=== PATIENT | male | born 1970 | race Caucasian/White ===

== ENCOUNTER 2019-02-13 15:22 | Inpatient (IN) | payer MEDICAID ==
[~2019-02-13] VITALS: Ht 180.3 cm; Wt 70.5 kg
--- NOTE | 2019-02-13 15:40 | NUR ---
pt rec'd to er via ems was yelling infront of [phone] . pt has dui offficers came to see pt case # [id number] officers #[id number] Xin Edwards # [id number]
[2019-02-13] MEDS ORDERED: IV NS 0.9% 1,000 ML BAG IV ONE (16:00)
[2019-02-13 16:04] LABS: BASOPHILS # (AUTO) 0.1 /CMM (0.0-0.2); BASOPHILS % (AUTO) 0.8 % (0.0-2.0); EOSINOPHILS % (AUTO) 0.6 % (0.0-6.0); HEMATOCRIT 44 % (39-51); LYMPHOCYTES # (AUTO) 2.9 /CMM (0.8-4.8); LYMPHOCYTES % (AUTO) 34.8 % (20.0-44.0); MEAN CORPUSCULAR HGB CONC 34 g/dl (31.0-36.0); MEAN CORPUSCULAR VOLUME 92 fL (80-96); MONOCYTES # (AUTO) 0.4 /CMM (0.1-1.30); MONOCYTES % (AUTO) 4.3 % (2.0-12.0); NEUTROPHILS % (AUTO) 59.5 % (43.0-81.0); PLATELET COUNT (AUTO) 379 /CMM (150-450); RED BLOOD CELL COUNT(AUTO) 4.75 MIL/uL (4.5-6.0); WHITE BLOOD COUNT (AUTO) 8.3 K/uL (4.3-11.0)
[2019-02-13 16:12] LABS: CALCIUM, SERUM 8.2 mg/dL (8.5-10.1); CARBON DIOXIDE 23 mmol/L (21-32); CHLORIDE 97 mmol/L (98-107); GLUCOSE 286 mg/dL (74-106); POTASSIUM 3.6 mmol/L (3.5-5.1); SODIUM SERUM 135 mmol/L (136-145); UREA NITROGEN, BLOOD 8 mg/dL (7-18)
[2019-02-13 16:26] LABS: ACETAMINOPHEN < 2 ug/ml (10-30); ALANINE AMINOTRANSFERASE 251 U/L (12-78); ALBUMIN 3.6 g/dL (3.4-5.0); ALCOHOL, BLOOD 276 mg/dL (0-0); ALKALINE PHOSPHATASE 115 U/L (46-116); ASPARTATE AMINOTRANSFERASE 347 U/L (15-37); BILIRUBIN,DIRECT 0.2 mg/dL (0.0-0.2); BILIRUBIN,TOTAL 0.5 mg/dL (0.2-1.0); SALICYLATE < 2.8 mg/dL (2.8-20.0); TOTAL PROTEIN, SERUM 8.2 g/dL (6.4-8.2)
[2019-02-13 16:45] LABS: APPEARANCE,URINE Clear (CLEAR); BILIRUBIN,URINE Negative (NEGATIVE); BLOOD, URINE Negative Ery/uL (NEGATIVE); COLOR,URINE Yellow (YELLOW); KETONES,URINE Negative (NEGATIVE); LEUKOCYTE ESTERASE ,URINE Negative (NEGATIVE); NITRITE, URINE Negative (NEGATIVE); PROTEIN,URINE Negative (NEGATIVE); UGLUCOSE 100 MG/DL mg/dL (NEGATIVE); UROBILINOGEN,URINE 0.2 EU/dL (0.2)
--- NOTE | 2019-02-13 18:19 | NUR ---
dr bimal kang admiting etoh withdrawal
--- NOTE | 2019-02-13 18:25 | NUR ---
CALLED NURSING SUP FOR MEDSURG BED
--- NOTE | 2019-02-13 19:25 | NUR ---
[facility] [facility]
--- NOTE | 2019-02-13 19:42 | NUR ---
GAVE REPORT TO GELA AGUILERA FOR PAZ
--- NOTE | 2019-02-13 20:41 | NUR ---
PT TRANSFERRED TO AR BED
[2019-02-13 20:45] VITALS: BP 144/73
[2019-02-13] MEDS: IV NS 0.9% 1,000 ML IV PRN (20:47)
[2019-02-13] MEDS ORDERED: THIAMINE HCL 100 MG TABLET PO ONE (21:00)
[2019-02-13] MEDS ORDERED: Z GUARD REMEDY 2 OZ OINT TP PRN ×2 (21:00→21:30)
[2019-02-13] MEDS ORDERED: ACETAMINOPHEN 325 MG TABLET PO PRN (21:00)
[2019-02-13] MEDS ORDERED: ONDANSETRON HCL/PF 4 MG/2 ML VIAL IVP PRN (21:00)
[2019-02-14] MEDS: LORAZEPAM INJ 2 MG/ML VIAL IV PRN ×2 (03:10→20:42)
[2019-02-14 04:00] VITALS: BP 149/92
[2019-02-14 06:54] LABS: BASOPHILS # (AUTO) 0.1 /CMM (0.0-0.2); BASOPHILS % (AUTO) 0.9 % (0.0-2.0); EOSINOPHILS % (AUTO) 2.2 % (0.0-6.0); HEMATOCRIT 43 % (39-51); HEMOGLOBIN 14.7 g/dL (13.5-17.5); LYMPHOCYTES # (AUTO) 2.3 /CMM (0.8-4.8); MEAN CORPUSCULAR HGB CONC 34 g/dl (31.0-36.0); MEAN CORPUSCULAR VOLUME 92 fL (80-96); MONOCYTES # (AUTO) 0.7 /CMM (0.1-1.30); MONOCYTES % (AUTO) 9.7 % (2.0-12.0); NEUTROPHILS # (AUTO) 3.8 /CMM (1.8-8.9); NEUTROPHILS % (AUTO) 54.2 % (43.0-81.0); PLATELET COUNT (AUTO) 294 /CMM (150-450); RED BLOOD CELL COUNT(AUTO) 4.67 MIL/uL (4.5-6.0)
--- NOTE | 2019-02-14 07:15 | NUR ---
MS RN NOTES PATIENT IN BED SLEEPING COMFORTABLY, ABUSABLE WHEN NAME CALLED/OX4. LAC #18 IS PATENT RUNNING WITH NS 75ML/HR. BED LOCKED AT THE LOWEST POSITION CALL LIGHT WITHIN REACH.
[2019-02-14 07:21] LABS: ALBUMIN 3.1 g/dL (3.4-5.0); BILIRUBIN,TOTAL 1.1 mg/dL (0.2-1.0); CALCIUM, SERUM 7.9 mg/dL (8.5-10.1); CREATININE 0.8 mg/dL (0.6-1.3); MAGNESIUM 1.8 mg/dL (1.8-2.4); PHOSPHORUS 2.8 mg/dL (2.5-4.9); POTASSIUM 3.9 mmol/L (3.5-5.1); TOTAL PROTEIN, SERUM 7.6 g/dL (6.4-8.2)
[2019-02-14 08:00] VITALS: BP 147/77
[2019-02-14] MEDS: FOLIC ACID 1 MG TABLET PO SCH (08:10)
[2019-02-14] MEDS: PANTOPRAZOLE 40 MG TABLET.DR PO SCH (08:10)
[2019-02-14] MEDS: THIAMINE HCL 100 MG TABLET PO SCH (08:10)
[2019-02-14] MEDS: MULTIVITAMINS,THERAGRAN 1 UDTAB TABLET PO SCH (08:11)
[2019-02-14 12:00] VITALS: BP 147/77
[2019-02-14] MEDS: IV NS 0.9% 1,000 ML IV PRN (12:55)
[2019-02-14 16:00] VITALS: BP 139/90
[2019-02-14 20:00] VITALS: BP 136/82
--- NOTE | 2019-02-14 20:06 | NUR ---
MS RN NOTES PATIENT IS A/O X4 SITTING IN BED COMFORTABLY. HE WAS ABLE TO TAKE SHOWER. LEFT ARM IV IS PATENT AND 75 ML/H NS IS RUNNING. NO PAIN AND DISCOMFORT NOTED. PT REQUESTED SLEEP MEDICATION, INFORMED COMBAT SYSTEMS OPERATOR NURSE. BED AT LOWEST POSITION LOCKED, CALL LIGHT WITHIN REACH. ENDORSED TO COMBAT SYSTEMS OPERATOR NURSE FOR PAZ.
--- NOTE | 2019-02-14 20:49 | NUR ---
recieved from another rrn for dylan nued care,
--- NOTE | 2019-02-14 21:04 | NUR ---
physician projection welding machine operator paged as the patient last drink of alcohol was yesterday and is anxious. lorazepam dose given for anxiety. requesting for mjedication for sleep.
--- NOTE | 2019-02-14 21:10 | NUR ---
DR MURDOCK CALLED BACK AND WITH ORDERS MADE AND CARRIED OUT
--- NOTE | 2019-02-14 21:13 | NUR ---
ASLEEP WITH THE SAME IVF ON
[2019-02-14] MEDS ORDERED: ZOLPIDEM TARTRATE 5 MG TABLET PO PRN (21:30)
[2019-02-15] MEDS: IV NS 0.9% 1,000 ML IV PRN (03:07)
[2019-02-15 04:00] VITALS: BP 142/75
--- NOTE | 2019-02-15 07:43 | NUR ---
MS RN NOTES PATIENT IS A/OX4 AWAKE SITTING IN THE BED ON ROOM AIR. NO SOB OR DISCOMFORT NOTED AT THIS TIME.LEFT ARM IV #18 PATENT @NS75ML/H. CALL LIGHT WITHIN CLOSE REACH BED LOCKED AT THE LOWEST POSITION.
[2019-02-15 08:00] VITALS: BP 147/94
[2019-02-15] MEDS: PANTOPRAZOLE 40 MG TABLET.DR PO SCH (08:29)
[2019-02-15] MEDS: MULTIVITAMINS,THERAGRAN 1 UDTAB TABLET PO SCH (08:29)
[2019-02-15] MEDS: THIAMINE HCL 100 MG TABLET PO SCH (08:29)
[2019-02-15] MEDS: FOLIC ACID 1 MG TABLET PO SCH (08:29)
--- NOTE | 2019-02-15 08:37 | NUR ---
MS RN NOTES PATIENT COMPLAINED OF THROBBING HEADACHE OF 3/10. TYLENOL ADMINISTRATED.
--- NOTE | 2019-02-15 11:29 | NUR ---
Social service consult requested by Dr. Nj for homelessness. Pt. is a 48 year old male who was admitted to [facility] for alcohol withdrawal. SW met with the pt. bedside. Pt. is alert and oriented x 4. Pt. was sitting upright on the edge of the bed. Pt. is cooperative and pleasant with SW during the assessment. Pt. states he is homeless and lives in his car. Pt. has been homeless for a month. Prior to being homeless, pt. was residing with his brother but they didn't get along. Pt. applied for GR and food stamps and stated he is going to go to the [facility] located at [address] [place] [address] in [place] once he is discharged from [facility]. SW offered pt. [place], however pt. declined. Pt. states, he doesn't want to go to [facility] since that's where he use to alliance party and use drugs. Pt. is willing to accept homeless resources. Pt. is an alcoholic and drinks 5 to 6 beers per day. 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 Pt. has a history of alcohol treatment programs. He attended [facility] approximately 20 years ago. 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 Pt's car at a place in [place], where the representative personal service let's him park there. Pt"s care is not registered and has no plates. Pt. is familiar with [facility] and goes there for meals and showers. Pt. will be discharged to his location of choice mentioned above. Pt. was provided with the following homeless/[place] resources: [facility] at [address] [facility] [place], [address] ; [facility] [place], [address] ; [facility] Homeless Resource Directory which includes food stamps, transitional housing, showers and hot meals etc; Mental Health clinics such as [facility] ; [facility] ; Health clinics;[facility] and Alcohol treatment centers such as [facility], ; [facility] Substance Abuse Hotline and [facility] . Pt. will require a T-shirt and TAP card upon discharge. Homeless Patient Waiver Form was placed in the chart for the pt. to sign upon discharge. WILLY Garcia is aware. No other social service needs are requested at this time. SW is available, if needed.
--- NOTE | 2019-02-15 12:30 | NUR ---
MS RN NOTES CLOSING PATIENT IS STABLE AMBULATORY A/OX4. LONGTERM MATERIAL PROVIDED BY [facility], TAB CARD PROVIDED. IV AND WRIST BAND REMOVED. PT LEFT HOSPITAL AT 1205.
== END 2019-02-15 12:15 | disposition home or self-care (01) | DRG 775 ==
LOC: ER 15:25 → MEDSG1 19:46
PROVIDERS: ADMIT Nurse Practitioner Acute Care; ATTEND Registered Nurse
DX: F10.239 Alcohol dependence with withdrawal, unspecified (principal); E88.09 Other disorders of plasma-protein metabolism, not elsewhere classified; E87.1 Hypo-osmolality and hyponatremia; R74.0 Nonspecific elevation of levels of transaminase and lactic acid dehydrogenase [LDH]; F32.9 Major depressive disorder, single episode, unspecified; E80.6 Other disorders of bilirubin metabolism; Y90.8 Blood alcohol level of 240 mg/100 ml or more; F10.280 Alcohol dependence with alcohol-induced anxiety disorder; Z87.891 Personal history of nicotine dependence; Z59.0 Homelessness; F15.90 Other stimulant use, unspecified, uncomplicated
CPT/HCPCS: 36415; 80048-TC; 80053-TC; 80061-TC; 80076-TC; 80305; 81000-TC; 83735-TC; 84100-TC; 85025-TC; 87081-TC; G0378; G0480; J2060; J7030